=== PATIENT | male | born 1935 | race Caucasian/White ===

== ENCOUNTER → 2016-09-10 | Outpatient (CLI) | payer MEDICARE, BC ==
[~2016-09-10] MED LIST: ATOR40TA21; VALS40TA2
--- NOTE | 2016-09-10 16:26 | RADRPT ---
PROCEDURE: XR Left hip and pelvis. CLINICAL INDICATION: Left hip pain and pelvic pain. TECHNIQUE: 3 views. Frontal pelvis. Frontal and lateral left hip. COMPARISON: 05/14/2014. FINDINGS: There are bilateral total hip arthroplasties. These appear satisfactory with no fracture, dislocatio n or loosening. There is no lytic lesion. 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 The soft tissues are normal. IMPRESSION: 1. Satisfactory postoperative appearance of the hips. 2. No acute abnormality. RPTAT: QQ .Philip Gutierrez MD, MD Date Time Electronically viewed and signed by .Philip Gutierrez MD, MD on 09/10/2016 16:26 .R/
== END | disposition home or self-care (01) ==
LOC: HKI 11:20
PROVIDERS: ATTEND Orthopaedic Surgery
DX: M25.552 Pain in left hip (principal); T84.84XA Pain due to internal orthopedic prosthetic devices, implants and grafts, initial encounter; Z96.643 Presence of artificial hip joint, bilateral
CPT/HCPCS: 73502; G0463